=== PATIENT | female | born 1990 | race Caucasian/White ===

== ENCOUNTER 2016-08-12 17:58 | Emergency (ER) | payer OTHER ==
[2016-08-12 18:04] VITALS: BP 140/85
--- NOTE | 2016-08-12 19:52 | ED Physician Documentation ---
History of Present Illness - Stated complaint Stated Complaint: COUGH - Chief complaint Chief Complaint: General - History obtained from History obtained from: Patient - History of Present Illness Timing: Other (26-year-old woman without underlying medical history presents with a week's worth of nonproductive cough that is quite severe at times and causes her to vomit. She is not nauseous and there is no possibility of . She denies fevers, but is short of breath. She also has a sore throat and runny nose and voice changes from the sore throat. She is status post tonsillectomy and adenoidectomy as a child. Her infant son is sick with a similar illness but not as severe.) Review of Systems Constitutional: denies: Fever, Chills Nose: reports: Rhinorrhea / runny nose Throat: reports: Sore throat Cardiac: denies: Chest pain / pressure, Palpitations Respiratory: reports: Dyspnea, Cough GI: denies: Abdominal Pain PD PAST MEDICAL HISTORY - Past Surgical History Past Surgical History: Yes General: Appendectomy HEENT: Myringotomy (tubes), Tonsil/Adenoidectomy - Present Medications Home Medications: Ambulatory Orders Medication Instructions Recorded Confirmed Cyclobenzaprine [Flexeril] 10 mg PO TID PRN #20 tablet 12/30/14 HYDROcod/ACETAM 5/325 [Notus 5/325] 1 - 2 ea PO Q6H PRN #15 tablet 12/30/14 predniSONE [Deltasone] 60 mg PO DAILY 5 Days 12/30/14 Azithromycin [Zithromax] 250 mg PO DAILY #4 tablet 04/26/15 Dextromethorphan HBr [Cough Relief] 15 mg PO Q6H PRN #100 ml 04/26/15 Ipratropium [place] 2 sprays NS TID PRN #1 bottle 04/26/15 Albuterol Sulfate [Proventil Hfa 1 - 2 puffs IH Q4H PRN #1 08/12/16 Inhaler] hfa.aer.ad Benzonatate [Tessalon] 200 mg PO TID PRN #20 capsule 08/12/16 guaiFENesin/CODEINE [Robitussin AC] 5 - 10 ml PO Q6H PRN #120 ml 08/12/16 predniSONE [Deltasone] 60 mg PO DAILY 5 Days 08/12/16 - Allergies Allergies/Adverse Reactions: Allergies Allergy/AdvReac Type Severity Reaction Status Date / Time No Known Drug Allergies Allergy Verified 12/30/14 12:21 - Social History Does the pt smoke?: Yes Smoking Status: Current every day smoker Does the pt drink ETOH?: No Does the pt have substance abuse?: No - Immunizations Immunizations are current?: Yes - POLST Patient has POLST: No PD ED PE NORMAL - Vitals Vital signs reviewed: Yes - General General: Alert and oriented X 3, No acute distress, Other (ffrequent barky cough ) - HEENT HEENT: PERRL, EOMI, Ears normal (sclerosis from prior PE tubes), Pharynx benign - Neck Neck: Supple, no meningeal sign, No bony TTP - Cardiac Cardiac: RRR, No murmur - Respiratory Respiratory: No respiratory distress, Clear bilaterally - Abdomen Abdomen: Non tender - Derm Derm: No rash - Neuro Neuro: Alert and oriented X 3, Normal speech - Psych Psych: Normal mood, Normal affect Results - Vitals Vitals: Vital Signs - 24 hr 08/12/16 18:02 Temperature 36.9 C Heart Rate 120 H Respiratory 20 Rate Blood Pressure 140/85 H O2 Saturation 98 Oxygen O2 Source Room air PD MEDICAL DECISION MAKING - ED course ED course: 26-year-old woman presents with URI, seems viral, no focal lung sounds are fever. She will be treated symptomatically. Departure - Departure Disposition: 01 Home, Self Care Clinical Impression: Viral URI with cough Condition: Good Record reviewed to determine appropriate education?: Yes Instructions: ED URI Viral W Wheezing Prescriptions: predniSONE [Deltasone] 60 mg PO DAILY 5 Days Albuterol Sulfate [Proventil Hfa Inhaler] 1 - 2 puffs IH Q4H PRN #1 hfa.aer.ad PRN Reason: Cough guaiFENesin/CODEINE [Robitussin AC] 5 - 10 ml PO Q6H PRN #120 ml PRN Reason: Cough Benzonatate [Tessalon] 200 mg PO TID PRN #20 capsule PRN Reason: Cough Comments: Call your doctor to arrange a follow up appointment. Make the next available appointment. In the interim return anytime if worse or if new symptoms develop. Your blood pressure was elevated today on check in to the emergency department. This does not mean that you have hypertension, it is a common phenomenon to check into the emergency department and have elevated blood pressure. I recommend that you see your primary care physician within the week to have it rechecked when you're feeling better. Forms: Activity restrictions
== END 2016-08-12 19:59 | disposition home or self-care (01) ==
LOC: ED 17:58
DX: J06.9 Acute upper respiratory infection, unspecified (principal); B97.89 Other viral agents as the cause of diseases classified elsewhere; R03.0 Elevated blood-pressure reading, without diagnosis of hypertension; F17.200 Nicotine dependence, unspecified, uncomplicated
CPT/HCPCS: 99283

== ENCOUNTER 2016-08-31 00:05 | Emergency (ER) | payer OTHER ==
[2016-08-31] MEDS ORDERED: guaiFENesin/CODEINE 5 ML UDC PO STA (00:14)
[2016-08-31] MEDS ORDERED: guaiFENesin/CODEINE 5 ML UDC ONE (00:26)
[2016-08-31] MEDS ORDERED: AZITHROMYCIN 250 MG TABLET PO STA (01:07)
[2016-08-31] MEDS ORDERED: AZITHROMYCIN 250 MG TABLET PO ONE (01:09)
== END 2016-08-31 01:16 | disposition home or self-care (01) ==
DX: J40 Bronchitis, not specified as acute or chronic (principal); F17.200 Nicotine dependence, unspecified, uncomplicated
CPT/HCPCS: 71020; 87801; 99283; A9270

== ENCOUNTER 2017-05-06 18:51 | Emergency (ER) | payer OTHER ==
[2017-05-06 18:56] VITALS: BP 112/74
== END 2017-05-06 20:55 | disposition left against medical advice (07) ==
LOC: ED 18:51
DX: Z53.21 Procedure and treatment not carried out due to patient leaving prior to being seen by health care provider (principal)

== ENCOUNTER 2017-10-17 22:28 | Emergency (ER) | payer OTHER ==
[2017-10-17 22:52] VITALS: BP 110/71
[2017-10-17] MEDS ORDERED: KETOROLAC 60 MG/2 ML VIAL IM STA (23:05)
--- NOTE | 2017-10-17 23:14 | ED Physician Documentation ---
PD HPI FEMALE - Stated complaint Stated Complaint: FEMALE /BLEED/PX - Chief complaint Chief Complaint: Abd Pain - History obtained from History obtained from: Patient, Family - History of Present Illness Timing - onset: Today Timing - details: Gradual onset, Still present Associated symptoms: Pelvic pain, Vaginal bleeding - Additional information Additional information: Patient is a 27 year old female who is presenting to the emergency department for a painful, heavy menstrual cycle. Patient states that the symptoms started today. Patient reports having a LEEP procedure about a week ago. Patient states that this is her normal time for her cycle. She called the nurses line who told the patient to come to the emergency department. Patient has not taken any medication for it. patient denies any dizziness, chest pain, shortness of breath or syncope. 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 HIGH GRADE DYSPLASIA... - Past Surgical History Past Surgical History: Yes General: Appendectomy Ortho: Other HEENT: Myringotomy (tubes), Tonsil/Adenoidectomy - Present Medications Home Medications: Ambulatory Orders Medication Instructions Recorded Confirmed No Known Home Medications [No 05/06/17 05/06/17 Known Home Medications] - Allergies Allergies/Adverse Reactions: Allergies Allergy/AdvReac Type Severity Reaction Status Date / Time No Known Drug Allergies Allergy Verified 10/17/17 22:41 - Social History Does the pt smoke?: Yes Smoking Status: Current every day smoker Does the pt drink ETOH?: No Does the pt have substance abuse?: No - Immunizations Immunizations are current?: Yes - POLST Patient has POLST: No PD ED PE NORMAL - Vitals Vital signs reviewed: Yes - General General: Alert and oriented X 3, No acute distress - HEENT HEENT: Atraumatic - Cardiac Cardiac: RRR - Respiratory Respiratory: No respiratory distress - Abdomen Abdomen: Soft, Non tender, Non distended - Derm Derm: Normal color, Warm and dry - Extremities Extremities: No deformity - Neuro Neuro: Alert and oriented X 3, No motor deficit, Normal speech Eye Opening: Spontaneous Motor: Obeys Commands Verbal: Oriented GCS Score: 15 PD ED PE EXPANDED - Female Female : Normal external, Vaginal Bleeding, Other (no bleeding from prior cervical procedure, mild bleeding) Results - Vitals Vitals: Vital Signs - 24 hr 10/17/17 10/17/17 22:38 22:51 Temperature 37.0 C Heart Rate 112 H 96 Respiratory 17 17 Rate Blood Pressure 108/81 H 110/71 O2 Saturation 99 97 Oxygen O2 Source Room air PD MEDICAL DECISION MAKING - ED course Complexity details: reviewed old records, reviewed results, re-evaluated patient , considered differential, d/w patient ED course: Patient was seen and examined at bedside. patient was well appearing, and in no distress. Patient's vital signs normalized without any intervention. Patient's pelvic exam was unremarkable. Patient was treated with toradol for pain. patient required no further work up and was stable for discharge with outpatient follow up. - Sepsis Event Vital Signs: Vital Signs - 24 hr 10/17/17 10/17/17 22:38 22:51 Temperature 37.0 C Heart Rate 112 H 96 Respiratory 17 17 Rate Blood Pressure 108/81 H 110/71 O2 Saturation 99 97 Oxygen O2 Source Room air Departure - Departure Disposition: 01 Home, Self Care Clinical Impression: Dysmenorrhea Condition: Good Instructions: ED Bleed Irregular Vaginal Follow-Up: primary,care provider [Other] Comments: Your pelvic exam showed no bleeding for your LEEP site. You can take nsaids ( ibuprofen, naproxen) or tylenol as needed for pain. You can also try heat packs. You should follow up with your FLORAL DESIGN TEACHER on friday if your symptoms don't improve. you may return to the emergency department at any time for syncope, dizziness, shortness of breath new, worsening or uncontrollable symptoms.
== END 2017-10-17 23:20 | disposition home or self-care (01) ==
LOC: ED 22:28
DX: N94.6 Dysmenorrhea, unspecified (principal); N92.0 Excessive and frequent menstruation with regular cycle; F17.200 Nicotine dependence, unspecified, uncomplicated
CPT/HCPCS: 96372; 99283

== ENCOUNTER 2017-12-29 19:06 | Emergency (ER) | payer OTHER ==
[2017-12-29] MEDS ORDERED: IPRATROPIUM/ALBUTEROL 3 ML NEB INH STA (21:18)
[2017-12-29] MEDS ORDERED: IBUPROFEN 800 MG TABLET PO STA (21:22)
[2017-12-29] MEDS ORDERED: DEXAMETHASONE 10 MG/ML VIAL PO STA (21:22)
[2017-12-29] MEDS ORDERED: BENZONATATE 100 MG CAPSULE PO STA (21:22)
--- NOTE | 2017-12-29 21:24 | ED Physician Documentation ---
History of Present Illness - Stated complaint Stated Complaint: H/A,COUGH - Chief complaint Chief Complaint: Resp - History obtained from History obtained from: Patient - History of Present Illness Timing: How many days ago (several) Pain level max: 6 Pain level now: 4 Improved by: rest Worsened by: exertion - Additonal information Additional information: Patient is a 27-year-old female who presents to the emergency department with coughing and wheezing for the past several days. Using her inhaler without relief. Is not using a spacer. No fevers. Does have some rhinorrhea and a sore throat. Denies any possibility of . No chest pain. Cough is dry. Review of Systems Ten Systems: 10 systems reviewed and negative Constitutional: denies: Fever, Chills Ears: denies: Ear pain Nose: reports: Rhinorrhea / runny nose, Congestion Throat: reports: Sore throat Cardiac: denies: Chest pain / pressure Respiratory: reports: Cough, Wheezing GI: denies: Abdominal Pain, Nausea, Vomiting, Diarrhea : denies: Now EGA Skin: denies: Rash Musculoskeletal: denies: Neck pain, Back pain Neurologic: denies: Headache PD PAST MEDICAL HISTORY - Past Medical History Past Medical History: No Cardiovascular: None Respiratory: None Neuro: None Endocrine/Autoimmune: None GI: None 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 : None HEENT: None Psych: None Musculoskeletal: None Derm: None - Past Surgical History Past Surgical History: Yes General: Appendectomy Ortho: Other HEENT: Myringotomy (tubes), Tonsil/Adenoidectomy - Present Medications Home Medications: Ambulatory Orders Medication Instructions Recorded Confirmed Albuterol Sulf [Ventolin Hfa 1 - 2 puffs INH Q4HR PRN #1 inhaler 12/29/17 Inhaler] Albuterol Sulf [Ventolin Hfa 1 puffs INH Q6HR 12/29/17 12/29/17 Inhaler] Benzonatate [Tessalon Perle] 100 - 200 mg PO TID PRN #30 capsule 12/29/17 predniSONE [Deltasone] 10 mg PO [id number] #42 tab 12/29/17 - Allergies Allergies/Adverse Reactions: Allergies Allergy/AdvReac Type Severity Reaction Status Date / Time No Known Drug Allergies Allergy Verified 12/29/17 19:44 - Social History Does the pt smoke?: Yes Smoking Status: Current every day smoker Does the pt drink ETOH?: No Does the pt have substance abuse?: No - Immunizations Immunizations are current?: Yes - POLST Patient has POLST: No PD ED PE NORMAL - Vitals Vital signs reviewed: Yes - General General: Alert and oriented X 3, No acute distress - HEENT HEENT: PERRL, Ears normal, Moist mucous membranes, Other (Moderate posterior oropharyngeal erythema. No exudates. Uvula midline. Normal phonation. No trismus) - Neck Neck: Supple, no meningeal sign, No adenopathy - Cardiac Cardiac: RRR - Respiratory Respiratory: No respiratory distress, Other (Diminished breath sounds bilaterally, right greater than left) - Abdomen Abdomen: Soft, Non tender, Non distended - Derm Derm: Warm and dry - Extremities Extremities: No edema - Neuro Neuro: Alert and oriented X 3 - Psych Psych: Normal mood, Normal affect Results - Vitals Vitals: Vital Signs - 24 hr 12/29/17 12/29/17 12/29/17 19:33 20:12 20:56 Temperature 37.1 C Heart Rate 130 H 131 H 108 H Respiratory 18 Rate Blood Pressure 115/68 123/78 O2 Saturation 100 100 12/29/17 12/29/17 21:44 22:09 Temperature Heart Rate 111 H 107 H Respiratory 16 18 Rate Blood Pressure 118/63 O2 Saturation 100 Oxygen O2 Source Room air - Labs Labs: Laboratory Tests 12/29/17 21:15 Group A Strep Rapid Negative - Rads (name of study) cxr Radiology: Prelim report reviewed, EMP read contemporaneously, See rad report ( Possible mild bronchial wall thickening centrally, which is nonspecific but can be seen with bronchitis or reactive airways disease. ) PD MEDICAL DECISION MAKING - ED course Complexity details: reviewed results, re-evaluated patient, considered differential, d/w patient ED course: Patient is a 27-year-old female with what appears to be an asthma exacerbation and likely viral URI. Will place on steroids for home. Will refill her inhaler. We will also prescribe cough medication. She is well-appearing, nontoxic. Feels much better after nebulizer treatment and air movement is greatly improved in the bilateral lungs. Patient counseled regarding signs and symptoms for which I believe and urgent re-evaluation would be necessary. Patient with good understanding of and agreement to plan and is comfortable going home at this time This document was made in part using voice recognition software. While efforts are made to proofread this document, sound alike and grammatical errors may occur. - Sepsis Event Vital Signs: Vital Signs - 24 hr 12/29/17 12/29/17 12/29/17 19:33 20:12 20:56 Temperature 37.1 C Heart Rate 130 H 131 H 108 H Respiratory 18 Rate Blood Pressure 115/68 123/78 O2 Saturation 100 100 12/29/17 12/29/17 21:44 22:09 Temperature Heart Rate 111 H 107 H Respiratory 16 18 Rate Blood Pressure 118/63 O2 Saturation 100 Oxygen O2 Source Room air Departure - Departure Disposition: Home, Self Care Clinical Impression: Viral URI, Wheezing Condition: Good Instructions: ED URI Viral W Wheezing Follow-Up: Provider,Other [Primary Care Provider] - As Needed Prescriptions: Albuterol Sulf [Ventolin Hfa Inhaler] 1 - 2 puffs INH Q4HR PRN #1 inhaler PRN Reason: Shortness Of Air/Wheezing Benzonatate [Tessalon Perle] 100 - 200 mg PO TID PRN #30 capsule PRN Reason: Cough predniSONE [Deltasone] 10 mg PO [id number] #42 tab Comments: Continue these medications at home. Return if you worsen. Continue to use your inhaler as needed. This should improve over the next week. Discharge Date/Time: 12/29/17 22:25
--- NOTE | 2017-12-29 21:44 | XRAY Report ---
Procedure Date: 12/29/2017 Accession Number: [id number] / [id number] Procedure: XR - Chest 2 View X-Ray CPT Code: 04243 FULL RESULT: EXAM: CHEST RADIOGRAPHY EXAM DATE: 12/29/2017 09:32 PM. CLINICAL HISTORY: Cough. COMPARISON: 08/31/2016. TECHNIQUE: 2 views. FINDINGS: Lungs/Pleura: No focal consolidation, pleural effusion or pneumothorax with normal lung volumes. There is possible mild bronchial wall thickening centrally Mediastinum: Heart and mediastinal contours are unremarkable. Other: None. IMPRESSION: Possible mild bronchial wall thickening centrally, which is nonspecific but can be seen with bronchitis or reactive airways disease. RADIA
[2017-12-29] MEDS ORDERED: CHERRY SYRUP 10 ML UDC PO ONE (21:54)
[2017-12-29 22:09] VITALS: BP 118/63
== END 2017-12-29 22:25 | disposition home or self-care (01) ==
LOC: ED 19:06
DX: J06.9 Acute upper respiratory infection, unspecified (principal); Z72.0 Tobacco use; R06.2 Wheezing
CPT/HCPCS: 71046; 87070; 87430; 94640; 94664; 99283; A9270

== ENCOUNTER 2018-02-07 16:16 | Emergency (ER) | payer OTHER ==
[2018-02-07] MEDS ORDERED: MAG HYDROX/AL HYDROX/SIMETH 30 ML UDC PO STA (17:05)
[2018-02-07] MEDS ORDERED: LIDOCAINE VISCOUS 2% 15 ML UDC MM STA (17:05)
--- NOTE | 2018-02-07 17:09 | ED Physician Documentation ---
PD HPI ABD PAIN - Stated complaint Stated Complaint: CHEST/ABD PX - Chief complaint Chief Complaint: Abd Pain - History obtained from History obtained from: Patient - History of Present Illness Timing - onset: How many weeks ago (1) Timing - duration: Weeks (1) Timing - details: Gradual onset, Still present, Waxing and waning Quality: Sharp, Pain Location: Epigastric Radiation: Chest Improved by: Meds Worsened by: Eating Associated symptoms: No: Fever, Nausea, Vomiting Similar symptoms before: Diagnosis (reflux) Recently seen: Clinic - Additional information Additional information: 27-year-old female with a history of reflux has developed symptoms that are not improved with use of Prilosec. She is having symptoms of burning in the epigastric region and into the chest. She denies use of ibuprofen Aleve or alcohol. She is started on some Prilosec which initially improve this and now it is not. She has not decreased her level of caffeine intake as yet. She denies use of supper hot/microwaved foods. Review of Systems Constitutional: denies: Fever Eyes: denies: Decreased vision Nose: denies: Congestion Throat: denies: Sore throat Cardiac: reports: Chest pain / pressure. denies: Palpitations Respiratory: denies: Dyspnea, Cough GI: reports: Abdominal Pain, Nausea. 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 : None HEENT: None Psych: None Musculoskeletal: None Derm: None - Past Surgical History Past Surgical History: Yes General: Appendectomy Ortho: Other HEENT: Myringotomy (tubes), Tonsil/Adenoidectomy - Present Medications Home Medications: Ambulatory Orders Medication Instructions Recorded Confirmed Albuterol Sulf [Ventolin Hfa 1 - 2 puffs INH Q4HR PRN #1 inhaler 12/29/17 Inhaler] Albuterol Sulf [Ventolin Hfa 1 puffs INH Q6HR 12/29/17 12/29/17 Inhaler] Omeprazole [PriLOSEC] 20 mg PO DAILY 02/07/18 02/07/18 Sucralfate [Carafate] 1 gm PO ACHS #28 tablet 02/07/18 - Allergies Allergies/Adverse Reactions: Allergies Allergy/AdvReac Type Severity Reaction Status Date / Time No Known Drug Allergies Allergy Verified 12/29/17 19:44 - Social History Does the pt smoke?: Yes Smoking Status: Current every day smoker Does the pt drink ETOH?: No Does the pt have substance abuse?: No - Immunizations Immunizations are current?: Yes - POLST Patient has POLST: No PD ED PE NORMAL - Vitals Vital signs reviewed: Yes (tachy) - General General: Alert and oriented X 3, No acute distress, Well developed/nourished - HEENT HEENT: Atraumatic, PERRL - Neck Neck: Supple, no meningeal sign, No bony TTP - Cardiac Cardiac: RRR, No murmur - Respiratory Respiratory: No respiratory distress, Clear bilaterally - Abdomen Abdomen: Soft, Other (mild epigastric tenderness) - Back Back: No CVA TTP, No spinal TTP - Derm Derm: Normal color, Warm and dry, No rash - Extremities Extremities: No deformity, No edema - Neuro Neuro: Alert and oriented X 3, pharmacy salesperson 2-12 intact, No motor deficit, No sensory deficit, Normal speech Eye Opening: Spontaneous Motor: Obeys Commands Verbal: Oriented GCS Score: 15 - Psych Psych: Normal mood, Normal affect Results - Vitals Vitals: Vital Signs - 24 hr 02/07/18 16:24 Temperature 36.5 C Heart Rate 109 H Respiratory 16 Rate Blood Pressure 112/68 O2 Saturation 99 Oxygen O2 Source Room air - EKG (time done) 1622 Rate: Rate (enter#) (103) Rhythm: Sinus tachycardia Ischemia: Normal ST segments Compare to prior EKG: Old EKG unavailable Computer interpretation: Agree with computer PD MEDICAL DECISION MAKING - ED course Complexity details: reviewed results, re-evaluated patient, considered differential, d/w patient ED course: 27 y/o female with reflux symptoms has symptoms despite taking the prilosec. She is administered viscous lido with mylanta and has resolution of her pain. We will put her on some carafate and switch her to pepcid. - Sepsis Event Vital Signs: Vital Signs - 24 hr 02/07/18 16:24 Temperature 36.5 C Heart Rate 109 H Respiratory 16 Rate Blood Pressure 112/68 O2 Saturation 99 Oxygen O2 Source Room air Departure - Departure Disposition: 01 Home, Self Care Clinical Impression: Reflux esophagitis Condition: Stable Instructions: ED GERD Follow-Up: Your, doctor [Other] Prescriptions: Sucralfate [Carafate] 1 gm PO ACHS #28 tablet Comments: switch your acid blocking medication to Pepcid A/C
[2018-02-07 17:45] VITALS: BP 114/88
== END 2018-02-07 17:45 | disposition home or self-care (01) ==
LOC: ED 16:16
DX: K21.0 Gastro-esophageal reflux disease with esophagitis (principal); F17.200 Nicotine dependence, unspecified, uncomplicated; R00.0 Tachycardia, unspecified
CPT/HCPCS: 93005; 99283; A9270

== ENCOUNTER 2018-11-05 18:23 | Emergency (ER) | payer OTHER ==
[2018-11-05] MEDS ORDERED: ALBUTEROL NEB 2.5 MG/3 ML INH STA (19:10)
[2018-11-05] MEDS ORDERED: PSEUDOEPHEDRINE 30 MG TABLET PO STA (19:10)
[2018-11-05] MEDS ORDERED: BENZONATATE 100 MG CAPSULE PO STA (19:10)
[2018-11-05] MEDS ORDERED: predniSONE 20 MG TABLET PO STA (19:10)
[2018-11-05] MEDS ORDERED: IBUPROFEN 800 MG TABLET PO STA (19:15)
--- NOTE | 2018-11-05 19:17 | ED Physician Documentation ---
PD HPI URI - Stated complaint Stated Complaint: LFT EAR PX/COUGH - Chief complaint Chief Complaint: Heent - History obtained from History obtained from: Patient - History of Present Illness Timing - onset: How many weeks ago (1) Timing duration: Weeks (1) Timing details: Gradual onset Pain level max: 7 Pain level now: 7 Associated symptoms: Nasal congestion, Rhinorrhea, Dry cough, Dyspnea (wheezing). No: Fever Contributing factors: Sick contact, COPD / asthma. 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 : None HEENT: None Psych: None Musculoskeletal: None Derm: None - Past Surgical History Past Surgical History: Yes General: Appendectomy Ortho: Other HEENT: Myringotomy (tubes), Tonsil/Adenoidectomy - Present Medications Home Medications: Ambulatory Orders Medication Instructions Recorded Confirmed Albuterol Sulf [Ventolin Hfa 1 - 2 puffs INH Q4HR PRN #1 inhaler 12/29/17 Inhaler] Albuterol Sulf [Ventolin Hfa 1 puffs INH Q6HR 12/29/17 12/29/17 Inhaler] Omeprazole [PriLOSEC] 20 mg PO DAILY 02/07/18 02/07/18 Sucralfate [Carafate] 1 gm PO ACHS #28 tablet 02/07/18 Amoxicillin 875 mg PO BID #20 tablet 11/05/18 Benzonatate [Tessalon Perle] 100 - 200 mg PO TID PRN #30 capsule 11/05/18 Cetirizine HCl/Pseudoephedrine 1 each PO BID PRN #30 tab.er.12h 11/05/18 [Zyrtec-D Tablet] predniSONE [Prednisone] 40 mg PO DAILY #10 tablet 11/05/18 - Allergies Allergies/Adverse Reactions: Allergies Allergy/AdvReac Type Severity Reaction Status Date / Time No Known Drug Allergies Allergy Verified 11/05/18 18:29 - Social History Does the pt smoke?: Yes Smoking Status: Current every day smoker Does the pt drink ETOH?: No Does the pt have substance abuse?: No - Immunizations Immunizations are current?: Yes - POLST Patient has POLST: No PD ED PE NORMAL - Vitals Vital signs reviewed: Yes - General General: Alert and oriented X 3, No acute distress - HEENT HEENT: PERRL, Moist mucous membranes, Pharynx benign, Other (Right TM is scarred but no fluid. Left TM is scarred, erythematous with purulent fluid.) - Neck Neck: Supple, no meningeal sign, No adenopathy - Cardiac Cardiac: RRR, Strong equal pulses - Respiratory Respiratory: No respiratory distress, Other (Mild wheezing bilaterally) - Abdomen Abdomen: Soft, Non tender, Non distended - Derm Derm: Warm and dry, No rash - Neuro Neuro: Alert and oriented X 3 Results - Vitals Vitals: Vital Signs - 24 hr 11/05/18 11/05/18 11/05/18 18:26 19:24 19:31 Temperature 36.5 C Heart Rate 119 H 122 H 120 H Respiratory 14 18 16 Rate Blood Pressure 120/76 114/70 O2 Saturation 100 100 Oxygen O2 Source Room air PD MEDICAL DECISION MAKING - ED course Complexity details: re-evaluated patient, considered differential, d/w patient ED course: Patient with a viral URI with left otitis media. Will place on antibiotics. We will continue supportive care. We will follow-up with her doctor for further care. She is well-appearing, nontoxic. Patient counseled regarding signs and symptoms for which I believe and urgent re-evaluation would be necessary. Patient with good understanding of and agreement to plan and is comfortable going home at this time This document was made in part using voice recognition software. While efforts are made to proofread this document, sound alike and grammatical errors may occur. Departure - Departure Disposition: 01 Home, Self Care Clinical Impression: Viral URI, Wheezing Left otitis media Qualifiers: Otitis media type: suppurative Chronicity: acute Recurrence: non-recurrent Spontaneous tympanic membrane rupture: without spontaneous rupture Qualified Code(s): H66.002 - Acute suppurative otitis media without spontaneous rupture of ear drum, left ear Condition: Good Instructions: ED Otitis Media Acute Adult, ED URI Viral W Wheezing Follow-Up: UZAIR ADAMS MD [Primary Care Provider] - Within 1 week Prescriptions: Amoxicillin 875 mg PO BID #20 tablet Benzonatate [Tessalon Perle] 100 - 200 mg PO TID PRN #30 capsule PRN Reason: Cough Cetirizine HCl/Pseudoephedrine [Zyrtec-D Tablet] 1 each PO BID PRN #30 tab.er.12h PRN Reason: nasal congestion predniSONE [Prednisone] 40 mg PO DAILY #10 tablet Comments: Take all antibiotics until gone. Return if you worsen. Continue to use your inhaler at home Discharge Date/Time: 11/05/18 19:34
[2018-11-05 19:33] VITALS: BP 114/70
== END 2018-11-05 19:34 | disposition home or self-care (01) ==
LOC: ED 18:23
DX: H66.002 Acute suppurative otitis media without spontaneous rupture of ear drum, left ear (principal); J06.9 Acute upper respiratory infection, unspecified; F17.200 Nicotine dependence, unspecified, uncomplicated
CPT/HCPCS: 94640; 99283; A9270; J7512